=== PATIENT | female | born 1990 | race Caucasian/White ===

== ENCOUNTER 2021-12-20 03:52 | Emergency (ER) | payer OTHER ==
[~2021-12-20] VITALS: Ht 157.5 cm; Wt 45.1 kg
[2021-12-20] MEDS ORDERED: ACETAMINOPHEN 325MG TABLET PO STA (04:25)
[2021-12-20] MEDS ORDERED: ONDANSETRON 4MG ODT PO ONE (04:30)
[2021-12-20 04:55] LABS: BASOPHILS % 0.4 % (0.0-2.0); CHLORIDE 101 mEq/L (98-107); HEMOGLOBIN. 15.2 g/dL (12.0-16.0); LYMPHOCYTES % 10.1 % (20.0-50.0); MEAN CORPUSCULAR HEMOGLOBIN 31.1 pg (28.0-32.0); MEAN PLATELET VOLUME 7.3 fl (7.4-10.4); MONOCYTES % 2.3 % (2.0-8.0); NEUTROPHILS % 87.2 % (40.0-76.0); PLATELET 306 x1000/uL (130-400); RED BLOOD CELL COUNT 4.88 mill/uL (4.2-5.4); RED CELL DISTRIBUTION WIDTH 13.1 % (11.6-14.6)
[2021-12-20] MEDS ORDERED: ONDANSETRON HCL 4MG/2ML INJ IV ONE (05:00)
[2021-12-20 05:19] LABS: B-HCG QUANTITATIVE 12412 mIU/mL (<3)
[2021-12-20] MEDS ORDERED: ACETAMINOPHEN 325MG TABLET PO SCH (05:45)
[2021-12-20] MEDS ORDERED: T3 PO (05:59)
[2021-12-20] MEDS ORDERED: IBUPROFEN 800MG TABLET PO ONE (06:00)
[2021-12-20] MEDS ORDERED: IBUP-2030 PO (06:00)
[2021-12-20 06:28] LABS: CLARITY URINE CLOUDY (CLEAR); COLOR URINE YELLOW (YELLOW); KETONES URINE 4+ (NEGATIVE); LEUKOCYTE ESTERASE URINE 1+ (NEGATIVE); NITRITE URINE NEGATIVE (NEGATIVE); OCCULT BLOOD URINE NEGATIVE (NEGATIVE); PROTEIN URINE TRACE (NEGATIVE); SPECIFIC GRAVITY URINE 1.024 (1.005-1.030); UROBILINOGEN URINE 0.2 E.U./dL (0.2-1.0)
[2021-12-20 06:32] VITALS: BP 141/72
== END 2021-12-20 06:37 | disposition home or self-care (01) ==
LOC: ER 03:52
DX: O36.4XX0 Maternal care for intrauterine death, not applicable or unspecified (principal); Z3A.01 Less than 8 weeks gestation of pregnancy
CPT/HCPCS: 36415; 76801; 76817; 80053; 81003; 81025; 84702; 85025; 86850; 86900; 86901; 96374; 99284; J2405; Q0162